=== PATIENT | male | born 1960 | race Caucasian/White ===

== ENCOUNTER → 2021-01-09 | Outpatient (CLI) | payer OTHER | LOC: KOH-I 11:39 | DX: M79.671 Pain in right foot (principal); M19.071 Primary osteoarthritis, right ankle and foot | CPT/HCPCS: 73630 ==

== ENCOUNTER → 2021-02-01 | Outpatient (CLI) | payer OTHER ==
[~2021-02-01] MED LIST: CYCLOBENZAPRINE5 MG PO; DAILY VALUE1 EACH PO; IBU800 MG PO; LISINOPRIL20 MG PO; VITAMIN B12 PO; VITAMIN D325 MCG PO; ZOCOR20 MG PO
[2021-02-01 15:17] LABS: HEMOGLOBIN 14.4 gm/dl (14.0-17.5); RED BLOOD COUNT 4.38 M/UL (4.20-5.50); WHITE BLOOD COUNT 8.3 K/UL (4.5-11.0)
[2021-02-01 15:37] LABS: BUN/CREATININE RATIO 23 (0-10)
== END ==
LOC: OPSV2 10:17 → EDSTATUS 12:30
PROVIDERS: Anesthesiology; Podiatrist Foot & Ankle Surgery
DX: Z01.818 Encounter for other preprocedural examination (principal); Z22.322 Carrier or suspected carrier of Methicillin resistant Staphylococcus aureus
CPT/HCPCS: 80048; 85027; 87081; 93005

== ENCOUNTER → 2021-02-01 | Outpatient (CLI) | payer OTHER | LOC: US 10:00 | DX: Z01.810 Encounter for preprocedural cardiovascular examination (principal); M19.071 Primary osteoarthritis, right ankle and foot | CPT/HCPCS: 93926 ==

== ENCOUNTER → 2021-03-24 | Day surgery (SDC) | payer OTHER | END | disposition home or self-care (01) | LOC: OR 05:43 → EDSTATUS 14:30 | DX: M19.071 Primary osteoarthritis, right ankle and foot (principal); M77.51 Other enthesopathy of right foot and ankle; L60.0 Ingrowing nail; G89.29 Other chronic pain; Z20.822 Contact with and (suspected) exposure to COVID-19; Z53.8 Procedure and treatment not carried out for other reasons | CPT/HCPCS: J2795; J3370; J7030 ==

== ENCOUNTER → 2021-04-21 | Day surgery (SDC) | payer OTHER ==
[~2021-04-21] VITALS: Ht 154.9 cm; Wt 73.0 kg
[~2021-04-21] MED LIST changes: +AMLODIPINE BESY10 MG PO; +BENADRYL 25MG C25 MG PO; +MELATONIN10 M2 PO; +MUCINEX600 MG PO; +OMEPRAZOLE40 MG PO
[2021-04-21 08:10] LABS: RED BLOOD COUNT 4.59 M/UL (4.20-5.50); WHITE BLOOD COUNT 7.3 K/UL (4.5-11.0)
[2021-04-21 08:36] LABS: BUN/CREATININE RATIO 24 (0-10)
== END | disposition home or self-care (01) ==
LOC: OR 07:25
PROVIDERS: Podiatrist Foot & Ankle Surgery
DX: M19.071 Primary osteoarthritis, right ankle and foot (principal); M20.21 Hallux rigidus, right foot; M67.873 Other specified disorders of tendon, right ankle and foot; I10 Essential (primary) hypertension; K21.9 Gastro-esophageal reflux disease without esophagitis; E78.5 Hyperlipidemia, unspecified; F32.A Depression, unspecified; F17.200 Nicotine dependence, unspecified, uncomplicated; Z88.0 Allergy status to penicillin; Z88.5 Allergy status to narcotic agent; Z79.1 Long term (current) use of non-steroidal anti-inflammatories (NSAID); Z79.899 Other long term (current) drug therapy
CPT/HCPCS: 36415; 73630; 76000; 80048; 85027; 93005; C1776; J0690; J1100; J2250; J2370; J2405; J2704; J2795; J3010; J3370; J7120

== ENCOUNTER → 2021-04-27 | Outpatient (CLI) | payer OTHER | LOC: KOH-I 14:22 | DX: M79.671 Pain in right foot (principal); Z96.698 Presence of other orthopedic joint implants | CPT/HCPCS: 73630 ==

== ENCOUNTER → 2021-05-15 | Outpatient (CLI) | payer OTHER | LOC: KOH-I 15:20 | DX: M79.671 Pain in right foot (principal); M79.672 Pain in left foot; Z96.698 Presence of other orthopedic joint implants | CPT/HCPCS: 73630 ==

== ENCOUNTER → 2021-05-29 | Outpatient (CLI) | payer OTHER | LOC: KOH-I 12:49 | DX: M79.671 Pain in right foot (principal) | CPT/HCPCS: 73630 ==

== ENCOUNTER → 2021-07-11 | Outpatient (CLI) | payer OTHER ==
[2021-07-11 11:01] LABS: HEMOGLOBIN 15.5 gm/dl (14.0-17.5); RED BLOOD COUNT 4.7 M/UL (4.20-5.50); WHITE BLOOD COUNT 7.7 K/UL (4.5-11.0)
== END ==
LOC: LAB 10:40
PROVIDERS: Podiatrist Foot & Ankle Surgery
DX: L03.119 Cellulitis of unspecified part of limb (principal)
CPT/HCPCS: 36415; 85027; 85652; 86140

== ENCOUNTER → 2021-07-20 | Outpatient (CLI) | payer OTHER | LOC: KOH-I 08:32 | DX: T84.89XA Other specified complication of internal orthopedic prosthetic devices, implants and grafts, initial encounter (principal); Z96.698 Presence of other orthopedic joint implants; M79.89 Other specified soft tissue disorders | CPT/HCPCS: 73700 ==

== ENCOUNTER → 2021-09-05 | Outpatient (CLI) | payer OTHER | LOC: NM 07:00 | DX: M86.9 Osteomyelitis, unspecified (principal); M19.271 Secondary osteoarthritis, right ankle and foot | CPT/HCPCS: 78800; A9569 ==

== ENCOUNTER → 2021-09-20 | Day surgery (SDC) | payer OTHER ==
[~2021-09-20] MED LIST changes: +VAZALORE81 MG PO
[2021-09-20 07:35] LABS: BUN/CREATININE RATIO 23 (0-10)
[2021-09-20 07:47] LABS: HEMOGLOBIN 13.3 gm/dl (14.0-17.5); RED BLOOD COUNT 4.11 M/UL (4.20-5.50); WHITE BLOOD COUNT 6.6 K/UL (4.5-11.0)
== END | disposition home or self-care (01) ==
LOC: OR 06:20
PROVIDERS: Podiatrist Foot & Ankle Surgery
DX: T81.89XA Other complications of procedures, not elsewhere classified, initial encounter (principal); Y79.2 Prosthetic and other implants, materials and accessory orthopedic devices associated with adverse incidents; Y83.8 Other surgical procedures as the cause of abnormal reaction of the patient, or of later complication, without mention of misadventure at the time of the procedure; M19.071 Primary osteoarthritis, right ankle and foot; I10 Essential (primary) hypertension; E78.5 Hyperlipidemia, unspecified; Z88.0 Allergy status to penicillin; Z72.0 Tobacco use
CPT/HCPCS: 80048; 85027; 87070; 87205; 93005; J1100; J1170; J2001; J2250; J2405; J2704; J2795; J3010; J3260; J3370; Q4133

== ENCOUNTER → 2021-11-03 | Outpatient (CLI) | payer OTHER ==
[~2021-11-03] MED LIST changes: +BANOPHEN25 MG PO; +VITAMIN C 500500 MG PO; +ZYVOX600 MG PO
[2021-11-03 13:37] LABS: HEMOGLOBIN 14.8 gm/dl (14.0-17.5); RED BLOOD COUNT 4.55 M/UL (4.20-5.50)
[2021-11-03 14:04] LABS: BUN/CREATININE RATIO 23 (0-10)
== END ==
LOC: OPSV2 12:30
PROVIDERS: Podiatrist Foot & Ankle Surgery
DX: Z01.818 Encounter for other preprocedural examination (principal)
CPT/HCPCS: 80048; 85027; 93005

== ENCOUNTER → 2021-11-08 | Day surgery (SDC) | payer OTHER | END | disposition home or self-care (01) | LOC: OR 07:23 | DX: M19.071 Primary osteoarthritis, right ankle and foot (principal); M79.5 Residual foreign body in soft tissue; I10 Essential (primary) hypertension; E78.5 Hyperlipidemia, unspecified; K21.9 Gastro-esophageal reflux disease without esophagitis; Z88.0 Allergy status to penicillin; Z88.5 Allergy status to narcotic agent; Z79.82 Long term (current) use of aspirin; Z79.899 Other long term (current) drug therapy | CPT/HCPCS: 73620; 73630; 76000; C1713; C1776; J1100; J1885; J2001; J2405; J2704; J2795; J3370 ==

== ENCOUNTER → 2022-01-02 | Outpatient (CLI) | payer OTHER | LOC: KOH-I 10:45 | DX: M79.671 Pain in right foot (principal); Z96.698 Presence of other orthopedic joint implants | CPT/HCPCS: 73630 ==